=== PATIENT | female | born 1980 | race African-American/Black ===

== ENCOUNTER 2017-01-30 23:23 | Emergency (ER) | payer OTHER ==
[2017-01-30 23:29] VITALS: BP 118/58; PULSE 80; TEMP 98.3; BMI 28.8
--- NOTE | 2017-01-31 00:09 | PDOC ---
History of Present Illness - General Chief Complaint: Injury Stated Complaint: INJURY,LT FOOT Time Seen by Provider: 01/30/17 23:37 History Source: Patient Exam Limitations: No Limitations - History of Present Illness Initial Comments: 01/31/17 00:04 36-year-old female presents to the emergency department complaining of a laceration to the left proximal anterior lower leg(approximately 3 inches inferior from the knee) patient states she accidentally walked into a sharp object that cut her prior to her arrival. Patient denies extremity numbness or tingling sensation. Patient denies any other injuries. Last tetanus: Within 5 years.. Occurred: reports: just prior to arrival Lower Extremity Pain Location: left: leg (prox ant tib lac) Past History - Past Medical History Allergies/Adverse Reactions: Allergies Allergy/AdvReac Type Severity Reaction Status Date / Time No Known Allergies Allergy Verified 01/30/17 23:29 Home Medications: Ambulatory Orders Unobtainable [Unobtainable] 08/20/13 Other medical history: denies - Surgical History Abdominal Surgery: Yes (liposuction) - Suicide/Smoking/Psychosocial Hx Smoking History: Never smoked Hx Alcohol Use: No Substance Use Type: None Review of Systems - Review of Systems Able to Perform ROS?: Yes Comments:: 01/31/17 00:05 Review of systems: All other ROS reviewed and are negative Left lower leg lac/neg pain Absent: ext numbness/tingling sensation PE: 3" inferior from left knee: 1.5cm verti lac over tib Neg active bleed Left knee F.R.O.M> neg pain on palp Procedure: Left lower leg ~3" inferior to knee Betadine prep 1% lidocaine=2cc NS irrigation copious (2) 5.0 nylon interrupted Bacitracin Bandaid Uneventful procedure Is the patient limited Estonian proficient: No *Physical Exam - Vital Signs Last Vital Signs Temp Pulse Resp BP Pulse Ox 98.3 F 80 18 118/58 99 01/30/17 23:25 01/30/17 23:25 01/30/17 23:25 01/30/17 23:25 01/30/17 23:25 *DC/Admit/Observation/Transfer Diagnosis at time of Disposition: Leg laceration Qualifiers: Encounter type: initial encounter Laterality: left Qualified Code(s): S81.812A - Laceration without foreign body, left lower leg, initial encounter - Discharge Dispostion Disposition: HOME Condition at time of disposition: Stable Admit: No - Referrals Referrals: Rajan Patel MD [Primary Care Provider] - - Patient Instructions Printed Discharge Instructions: DI for Laceration Repair Additional Instructions: Keep the incision clean and dry for 24 hours. After 24 hours, you may allow the soap and water to rinse off your incision. Avoid direct pressure of the water to the incision. Pat the incision dry with a clean clothe. Apply a small amount of bacitracin onto the incision. Cover the incision loosely with a bandaid. Take tylenol/motrin as needed for pain. Follow up with your physician or the ER in 48 hours for a wound check. Return to the ER if you notice red streaks, increase redness/swelling/severe pain to the incision. Suture removal in 10-12 days. - Post Discharge Activity Forms/Work/School Notes: Back to Work
--- NOTE | 2017-01-31 00:34 | PDOC ---
*Physical Exam - Vital Signs Last Vital Signs Temp Pulse Resp BP Pulse Ox 98.3 F 80 18 118/58 99 01/30/17 23:25 01/30/17 23:25 01/30/17 23:25 01/30/17 23:25 01/30/17 23:25 Medical Decision Making - Medical Decision Making 01/31/17 00:33 agree with care from CHRISTELLE Stewart *DC/Admit/Observation/Transfer Diagnosis at time of Disposition: Leg laceration Qualifiers: Encounter type: initial encounter Laterality: left Qualified Code(s): S81.812A - Laceration without foreign body, left lower leg, initial encounter - Discharge Dispostion Disposition: HOME Condition at time of disposition: Stable - Referrals Referrals: Rajan Patel MD [Primary Care Provider] - - Patient Instructions Printed Discharge Instructions: DI for Laceration Repair Additional Instructions: Keep the incision clean and dry for 24 hours. After 24 hours, you may allow the soap and water to rinse off your incision. Avoid direct pressure of the water to the incision. Pat the incision dry with a clean clothe. Apply a small amount of bacitracin onto the incision. Cover the incision loosely with a bandaid. Take tylenol/motrin as needed for pain. Follow up with your physician or the ER in 48 hours for a wound check. Return to the ER if you notice red streaks, increase redness/swelling/severe pain to the incision. Suture removal in 10-12 days. - Post Discharge Activity
== END 2017-01-31 00:49 | disposition home or self-care (01) ==
LOC: JER 23:23
PROC: 0JQP0ZZ Repair Left Lower Leg Subcutaneous Tissue and Fascia, Open Approach (ICD-10-PCS; principal; 2017-01-30)
DX: S81.812A Laceration without foreign body, left lower leg, initial encounter (principal); W26.8XXA Contact with other sharp object(s), not elsewhere classified, initial encounter; Y93.89 Activity, other specified; Y92.89 Other specified places as the place of occurrence of the external cause; Y99.8 Other external cause status
CPT/HCPCS: 99281-25